=== PATIENT | female | born 2000 | race Caucasian/White ===

== ENCOUNTER → 2021-12-24 | Outpatient (CLI) | payer OTHER ==
--- NOTE | 2021-12-24 14:44 | Diagnostic Imaging Report ---
INDICATION: Left foot injury Three views of the left foot show no fracture, dislocation or other acute abnormalities. IMPRESSION: Negative left foot with special attention to the big toe. Dictated by: Dictated on workstation # [id number]
== END ==
LOC: RAD 14:03
PROVIDERS: ATTEND Nurse Practitioner Primary Care
DX: S99.922A Unspecified injury of left foot, initial encounter (principal); W20.8XXA Other cause of strike by thrown, projected or falling object, initial encounter
CPT/HCPCS: 73630